=== PATIENT | female | born 1990 | race American Indian/Alaskan Native ===

== ENCOUNTER 2017-07-18 07:05 | Emergency (ER) | payer MEDICARE ==
[2017-07-18 07:55] VITALS: BP 125/64
[2017-07-18] MEDS ORDERED: DUONEB *Not for PRN Use IH ONE (08:25)
--- NOTE | 2017-07-18 08:52 | Emergency Department Report ---
ED Asthma HPI - General Chief Complaint: Upper Respiratory Infection Stated Complaint: COUGH,SOB Time Seen by Provider: 07/18/17 08:25 Source: patient Mode of arrival: Ambulatory Limitations: No Limitations - History of Present Illness Initial Comments: 26-year-old asthmatic comes in complaining of shortness of breathing since Wednesday. Patient admits to wheezing, coughing, runny nose, sneezing, watery eyes. Patient reports that she has ran out of her albuterol inhaler. Patient denies any fever chills no nausea no vomiting no chest pain no headache. This reports that she takes Claritin daily. She has no known drug allergies. MD Complaint: "asthma attack", wheezing -: days(s) (5) Asthma History: other Severity: similar to prior Context: ran out of meds, allergen exposure Associated Symptoms: dry cough. denies: productive cough, fever, chest pain, hemoptysis, leg edema, syncope - Related Data Current Asthma Therapy: inhaled bronchodilator Previous Rx's Medication Instructions Recorded Last Taken Type ALBUTEROL Inhaler [ProAir HFA 2 puff IH QID PRN #1 inhalation 07/18/17 Unknown Rx Inhaler] predniSONE [Deltasone] 20 mg PO QDAY #5 tab 07/18/17 Unknown Rx Allergies Allergy/AdvReac Type Severity Reaction Status Date / Time No Known Allergies Allergy Verified 07/18/17 08:51 ED Review of Systems ROS: Stated complaint: COUGH,SOB Other details as noted in HPI Constitutional: denies: chills, fever Eyes: denies: eye pain, eye discharge, vision change ENT: congestion, other (rhinorrhea, watery eyes, sneezing) Respiratory: cough, shortness of breath, wheezing Cardiovascular: denies: chest pain, palpitations Endocrine: no symptoms reported Gastrointestinal: denies: abdominal pain, nausea, diarrhea Genitourinary: denies: urgency, dysuria, discharge Musculoskeletal: denies: back pain, joint swelling, arthralgia Skin: denies: rash, lesions Neurological: denies: headache, weakness, paresthesias Psychiatric: denies: anxiety, depression Hematological/Lymphatic: denies: easy bleeding, easy bruising ED Past Medical Hx - Past Medical History Hx Asthma: Yes - Medications Home Medications: Home Medications Medication Instructions Recorded Confirmed Last Taken Type ALBUTEROL Inhaler [ProAir HFA 2 puff IH QID PRN #1 inhalation 07/18/17 Unknown Rx Inhaler] predniSONE [Deltasone] 20 mg PO QDAY #5 tab 07/18/17 Unknown Rx ED Physical Exam - General Limitations: No Limitations General appearance: alert, in no apparent distress - Head Head exam: Present: atraumatic, normocephalic - Eye Eye exam: Present: normal appearance Pupils: Present: normal accommodation - Neck Neck exam: Present: normal inspection, full ROM. Absent: lymphadenopathy - Respiratory Respiratory exam: Present: wheezes - Cardiovascular Cardiovascular Exam: Present: regular rate, normal rhythm. Absent: systolic murmur, diastolic murmur, rubs, gallop - GI/Abdominal GI/Abdominal exam: Present: soft, normal bowel sounds - Extremities Exam Extremities exam: Present: normal inspection, full ROM - Back Exam Back exam: Present: normal inspection - Neurological Exam Neurological exam: Present: alert, oriented X3 - Psychiatric Psychiatric exam: Present: normal affect, normal mood - Skin Skin exam: Present: warm, dry, intact, normal color. Absent: rash ED Course Vital Signs 07/18/17 07/18/17 07/18/17 07:52 08:39 08:40 Temperature 98.3 F Pulse Rate 80 Pulse Rate [ 86 86 Anterior Bilateral Throughout] Respiratory 16 Rate Respiratory 18 17 Rate [Anterior Bilateral Throughout] Blood Pressure 125/64 O2 Sat by Pulse 100 Oximetry ED Medical Decision Making - Medical Decision Making Patient's been evaluated by this provider fast track. DuoNeb start her Medrol 125 mg has been ordered. We will not need to do chest x-ray since patient does not have a fever. Would discharge patient home on albuterol inhaler. Short course of steroids. Patient verbalized understanding. Critical care attestation.: If time is entered above; I have spent that time in minutes in the direct care of this critically ill patient, excluding procedure time. ED Disposition Clinical Impression: Asthma Qualifiers: Asthma severity: unspecified severity Asthma persistence: unspecified Asthma complication type: uncomplicated Qualified Code(s): J45.909 - Unspecified asthma , uncomplicated Disposition: - TO HOME OR SELFCARE Is pt being admited?: No Does the pt Need Aspirin: No Condition: Stable Instructions: Asthma (ED) Additional Instructions: Please use albuterol inhaler as prescribed. Take prednisone as prescribed. Follow up with her primary care provider if symptoms persist or gets worse. Prescriptions: ALBUTEROL Inhaler [ProAir HFA Inhaler] 2 puff IH QID PRN #1 inhalation PRN Reason: Shortness Of Breath predniSONE [Deltasone] 20 mg PO QDAY #5 tab Referrals: ROSA ALVARADO [Other] - 3-5 Days
[2017-07-18] MEDS ORDERED: PROVENTIL IH ONE ×2 (09:00→09:01)
== END 2017-07-18 09:28 | disposition home or self-care (01) ==
LOC: ED 07:05
DX: J45.909 Unspecified asthma, uncomplicated (principal)
CPT/HCPCS: 94640; 96372; 99282; J2930